=== PATIENT | female | born 1960 | race Caucasian/White ===

== ENCOUNTER 2017-06-24 19:48 | Inpatient (IN) | payer BC, OTHER ==
[~2017-06-24] VITALS: Ht 162.6 cm; Wt 82.5 kg
[2017-06-24 20:12] LABS: GLUCOSE,POINT OF CARE 170 MG/DL (70-110)
[2017-06-24] MEDS ORDERED: METO-327 PO (20:13)
[2017-06-24] MEDS ORDERED: LOSA100T29 PO (20:13)
[2017-06-24] MEDS ORDERED: CLOP75TA32 PO (20:13)
[2017-06-24] MEDS ORDERED: INSU3INS3 SQ (20:13)
[2017-06-24] MEDS ORDERED: AMLO10TA55 PO (20:13)
[2017-06-24] MEDS ORDERED: INSU100I3 SQ (20:13)
[2017-06-24] MEDS ORDERED: ATOR20TA65 PO (20:13)
[2017-06-24] MEDS ORDERED: METF10002 PO (20:13)
[2017-06-24 20:40] LABS: CALCIUM, TOTAL 9.3 mg/dL (8.8-10.5); CREATININE 1.33 mg/dL (0.60-1.30); POTASSIUM 4.3 mmol/L (3.5-5.1)
[2017-06-24 20:47] LABS: ALBUMIN 3.5 g/dL (3.4-5.0); BILIRUBIN,TOTAL 0.3 mg/dL (0.1-1.0); TOTAL PROTEIN, SERUM 7.9 g/dL (6.4-8.2)
[2017-06-24 21:05] LABS: BASOPHILS % (AUTO) 0.5 % (0.0-2.0); EOSINOPHILS % (AUTO) 8.3 % (1.0-6.0); HEMATOCRIT 33.6 % (36-46); HEMOGLOBIN 11.2 g/dL (12.0-16.0); LYMPHOCYTES # (AUTO) 3.4 K/uL (1.0-4.8); LYMPHOCYTES % (AUTO) 38.5 % (22.0-44.0); MEAN CORPUSCULAR HEMOGLOBIN 27.1 pg (26.0-34.0); MEAN CORPUSCULAR HGB CONC 33.3 G/dL (31.0-37.0); MEAN CORPUSCULAR VOLUME 81 fL (80-100); MONOCYTES # (AUTO) 0.4 K/uL (0.1-1.0); MONOCYTES % (AUTO) 4.8 % (2.0-9.0); NEUTROPHILS # (AUTO) 4.2 K/uL (1.8-7.7); NEUTROPHILS % (AUTO) 47.9 % (40.0-70.0); PLATELET COUNT (AUTO) 315 K/uL (150-450); RED BLOOD CELL COUNT(AUTO) 4.12 MIL/uL (4.00-5.20); RED CELL DISTRIBUTION WIDTH 15.9 % (11.5-14.5); WHITE BLOOD COUNT (AUTO) 8.8 K/uL (4.5-11.0)
[2017-06-24 21:28] LABS: PROTHROMBIN TIME 10.2 SEC (9.4-11.6)
[2017-06-24] MEDS ORDERED: SODIUM CHLORIDE 0.9% 2,000 ML IV ONE (23:30)
[2017-06-24] MEDS ORDERED: HEPARIN SODIUM,PORCINE 5,000 UNITS/ML VIAL IVP ONE (23:30)
[2017-06-24] MEDS ORDERED: HEPARIN SODIUM 25000 UNITS/D5W 250 ML IV PRN (23:30)
[2017-06-25] MEDS ORDERED: 0.9% SODIUM CHLORIDE 10 ML SYRINGE IVP PRN (02:30)
[2017-06-25] MEDS ORDERED: ONDANSETRON HCL 4 MG/2 ML VIAL IVP PRN (02:30)
[2017-06-25] MEDS ORDERED: HEPARIN SODIUM,PORCINE 5,000 UNITS/ML VIAL IVP PRN ×2 (02:45)
[2017-06-25] MEDS ORDERED: POTASSIUM CHL 20 MEQ/0.45% NS 1,000 ML IV ONE (02:45)
[2017-06-25 05:13] LABS: BASOPHILS # (AUTO) 0.06 K/uL (0.00-0.20); BASOPHILS % (AUTO) 0.7 % (0.0-2.0); EOSINOPHILS # (AUTO) 0.67 K/uL (0.00-0.70); EOSINOPHILS % (AUTO) 8.53 % (1.0-6.0); HEMATOCRIT 30.8 % (36-46); HEMOGLOBIN 10.1 g/dL (12.0-16.0); LYMPHOCYTES # (AUTO) 3.2 K/uL (1.0-4.8); LYMPHOCYTES % (AUTO) 40.5 % (22.0-44.0); MEAN CORPUSCULAR HEMOGLOBIN 27.3 pg (26.0-34.0); MEAN CORPUSCULAR HGB CONC 32.7 G/dL (31.0-37.0); MEAN CORPUSCULAR VOLUME 83 fL (80-100); MONOCYTES # (AUTO) 0.4 K/uL (0.1-1.0); MONOCYTES % (AUTO) 5.1 % (2.0-9.0); NEUTROPHILS # (AUTO) 3.5 K/uL (1.8-7.7); NEUTROPHILS % (AUTO) 45.2 % (40.0-70.0); PLATELET COUNT (AUTO) 254 K/uL (150-450); RED CELL DISTRIBUTION WIDTH 15.6 % (11.5-14.5); WHITE BLOOD COUNT (AUTO) 7.8 K/uL (4.5-11.0)
[2017-06-25 05:32] LABS: ALBUMIN 2.9 g/dL (3.4-5.0); BILIRUBIN,TOTAL 0.3 mg/dL (0.1-1.0); CALCIUM, TOTAL 8.5 mg/dL (8.8-10.5); POTASSIUM 4.3 mmol/L (3.5-5.1); TOTAL PROTEIN, SERUM 6.8 g/dL (6.4-8.2)
[2017-06-25] MEDS ORDERED: ACETAMINOPHEN 325 MG TABLET PO PRN (07:15)
[2017-06-25] MEDS ORDERED: MORPHINE SULFATE 2 MG/ML SYRINGE IVP PRN (07:15)
[2017-06-25] MEDS ORDERED: MAGNESIUM HYDROXIDE SUSPENSION 30 ML UDCUP PO PRN (07:15)
[2017-06-25] MEDS ORDERED: DEXTROSE 50%-WATER 25 GM/50 ML SYRINGE IVP PRN (07:15)
[2017-06-25] MEDS: DOCUSATE SODIUM 100 MG CAPSULE PO SCH ×2 (08:14→20:43)
[2017-06-25] MEDS: PANTOPRAZOLE SODIUM 40 MG DR TABLET PO SCH (08:14)
[2017-06-25] MEDS ORDERED: AmLODIPine BESYLATE 5 MG TABLET PO SCH (09:00)
[2017-06-25 12:18] LABS: GLUCOSE,POINT OF CARE 210 MG/DL (70-110)
[2017-06-25 14:35] VITALS: BP 142/71
[2017-06-25] MEDS: HEPARIN SODIUM 25000 UNITS/D5W 250 ML IV PRN ×3 (15:38→22:34)
[2017-06-25] MEDS ORDERED: PNEUMOCOCCAL VACCINE POLYVALENT 0.5 ML VIAL [PPSV23] IM ONE (18:00)
[2017-06-25] MEDS: INSULIN ASPART 100 UNITS/ML SQ PRN ×2 (18:20→20:44)
[2017-06-25 19:43] VITALS: BP 145/74
[2017-06-25] MEDS ORDERED: SERT50TA12 PO (19:59)
[2017-06-25] MEDS: ATORVASTATIN CALCIUM 20 MG TABLET PO SCH (20:43)
[2017-06-25 23:52] VITALS: BP 147/73
[2017-06-26] MEDS ORDERED: HEPARIN SODIUM,PORCINE 5,000 UNITS/ML VIAL IVP PRN ×2 (00:30)
[2017-06-26] MEDS: HEPARIN SODIUM 25000 UNITS/D5W 250 ML IV PRN ×2 (00:38→08:29)
[2017-06-26 05:06] VITALS: BP 146/92
[2017-06-26 05:15] LABS: GLUCOSE,POINT OF CARE 259 MG/DL (70-110)
[2017-06-26 05:15] LABS: GLUCOSE COMMENT 1 Received Meds; GLUCOSE,POINT OF CARE 331 MG/DL (70-110)
[2017-06-26 06:34] LABS: BASOPHILS % (AUTO) 0.9 % (0.0-2.0); EOSINOPHILS % (AUTO) 9.2 % (1.0-6.0); HEMATOCRIT 31.7 % (36-46); HEMOGLOBIN 10.8 g/dL (12.0-16.0); LYMPHOCYTES # (AUTO) 2.5 K/uL (1.0-4.8); LYMPHOCYTES % (AUTO) 34.3 % (22.0-44.0); MEAN CORPUSCULAR HEMOGLOBIN 27.8 pg (26.0-34.0); MEAN CORPUSCULAR HGB CONC 33.9 G/dL (31.0-37.0); MEAN CORPUSCULAR VOLUME 82 fL (80-100); MONOCYTES # (AUTO) 0.4 K/uL (0.1-1.0); MONOCYTES % (AUTO) 5.5 % (2.0-9.0); NEUTROPHILS # (AUTO) 3.7 K/uL (1.8-7.7); NEUTROPHILS % (AUTO) 50.1 % (40.0-70.0); PLATELET COUNT (AUTO) 251 K/uL (150-450); RED BLOOD CELL COUNT(AUTO) 3.87 MIL/uL (4.00-5.20); RED CELL DISTRIBUTION WIDTH 15.8 % (11.5-14.5); WHITE BLOOD COUNT (AUTO) 7.4 K/uL (4.5-11.0)
[2017-06-26 07:01] VITALS: BP 161/85
[2017-06-26] MEDS: INSULIN ASPART 100 UNITS/ML SQ PRN ×4 (07:22→21:13)
[2017-06-26] MEDS: AmLODIPine BESYLATE 10 MG TABLET PO SCH (08:19)
[2017-06-26] MEDS: PANTOPRAZOLE SODIUM 40 MG DR TABLET PO SCH (08:19)
[2017-06-26] MEDS: DOCUSATE SODIUM 100 MG CAPSULE PO SCH ×2 (08:19→20:34)
[2017-06-26 09:37] LABS: GLUCOSE COMMENT 1 Received Meds; GLUCOSE,POINT OF CARE 307 MG/DL (70-110)
[2017-06-26 11:48] VITALS: BP 154/79
[2017-06-26] MEDS ORDERED: IOVERSOL 350 MG/ML 100 ML VIAL ONE (15:10)
[2017-06-26] MEDS ORDERED: SODIUM CHLORIDE 0.9% 100 ML ONE (15:10)
[2017-06-26 15:19] VITALS: BP 179/88
[2017-06-26] MEDS ORDERED: MIDAZOLAM HCL 2 MG/2 ML VIAL ONE (15:27)
[2017-06-26] MEDS ORDERED: FentaNYL CITRATE-PF 100 MCG/2 ML VIAL ONE (15:28)
[2017-06-26 15:57] LABS: GLUCOSE,POINT OF CARE 381 MG/DL (70-110)
[2017-06-26] MEDS ORDERED: HEPARIN SODIUM 1000 UNITS/NS 500 ML ONE (16:01)
[2017-06-26] MEDS ORDERED: LIDOCAINE HCL/PF 1% 30 ML VIAL ONE (16:01)
[2017-06-26] MEDS ORDERED: IODIXANOL 320 MG/ML 100 ML VIAL ONE (16:09)
[2017-06-26] MEDS ORDERED: CIPROFLOXACIN 400 MG/D5% WATER 200 ML IV ONE (16:15)
[2017-06-26] MEDS: CIPROFLOXACIN 400 MG/D5% WATER 200 ML IV SCH (16:20)
[2017-06-26] MEDS ORDERED: MIDAZOLAM HCL 2 MG/2 ML VIAL IVP ONE (16:24)
[2017-06-26] MEDS ORDERED: FentaNYL CITRATE-PF 100 MCG/2 ML VIAL IVP ONE (16:24)
[2017-06-26] MEDS ORDERED: HEPARIN SODIUM,PORCINE 1,000 UNITS/ML 10 ML VIAL ONE (16:45)
[2017-06-26 18:26] VITALS: BP 164/80
[2017-06-26 19:25] VITALS: BP 131/72
[2017-06-26] MEDS: CLOPIDOGREL BISULFATE 75 MG TABLET PO SCH (20:34)
[2017-06-26] MEDS: ATORVASTATIN CALCIUM 20 MG TABLET PO SCH (20:34)
[2017-06-26] MEDS ORDERED: INSULIN DETEMIR 100 UNITS/ML SQ SCH (21:00)
[2017-06-26 23:18] LABS: GLUCOSE,POINT OF CARE 380 MG/DL (70-110)
[2017-06-26 23:18] LABS: GLUCOSE COMMENT 1 Received Meds; GLUCOSE,POINT OF CARE 339 MG/DL (70-110)
[2017-06-27 00:31] VITALS: BP 126/71
[2017-06-27] MEDS ORDERED: SODIUM CHLORIDE 0.9% 250 ML IV ONE (04:01)
[2017-06-27] MEDS: CIPROFLOXACIN 400 MG/D5% WATER 200 ML IV SCH (04:06)
[2017-06-27 05:21] VITALS: BP 136/71
[2017-06-27] MEDS: INSULIN ASPART 100 UNITS/ML SQ PRN (05:48)
[2017-06-27 06:13] LABS: GLUCOSE COMMENT 1 Received Meds; GLUCOSE,POINT OF CARE 288 MG/DL (70-110)
[2017-06-27 08:01] VITALS: BP 159/79
[2017-06-27] MEDS: AmLODIPine BESYLATE 10 MG TABLET PO SCH (08:17)
[2017-06-27] MEDS: PANTOPRAZOLE SODIUM 40 MG DR TABLET PO SCH (08:17)
[2017-06-27] MEDS: DOCUSATE SODIUM 100 MG CAPSULE PO SCH (08:17)
[2017-06-27] MEDS: CLOPIDOGREL BISULFATE 75 MG TABLET PO SCH (08:17)
== END 2017-06-27 11:10 | disposition home or self-care (01) | DRG 253 ==
LOC: EMS 19:53 → 5S 06-25 11:51
PROVIDERS: ADMIT Internal Medicine; ATTEND Internal Medicine
PROC: 3E0234Z Introduction of Serum, Toxoid and Vaccine into Muscle, Percutaneous Approach (ICD-10-PCS; 2017-06-25)
PROC: 047L3ZZ Dilation of Left Femoral Artery, Percutaneous Approach (ICD-10-PCS; principal; 2017-06-26)
PROC: 047N3ZZ Dilation of Left Popliteal Artery, Percutaneous Approach (ICD-10-PCS; 2017-06-26)
DX: I73.9 Peripheral vascular disease, unspecified (principal); N39.0 Urinary tract infection, site not specified; I10 Essential (primary) hypertension; M71.21 Synovial cyst of popliteal space [Baker], right knee; F32.9 Major depressive disorder, single episode, unspecified; E78.5 Hyperlipidemia, unspecified; E11.51 Type 2 diabetes mellitus with diabetic peripheral angiopathy without gangrene; E66.01 Morbid (severe) obesity due to excess calories; E11.65 Type 2 diabetes mellitus with hyperglycemia; Z79.02 Long term (current) use of antithrombotics/antiplatelets; Z79.899 Other long term (current) drug therapy; Z91.14 Patient's other noncompliance with medication regimen; Z86.718 Personal history of other venous thrombosis and embolism; Z23 Encounter for immunization
CPT/HCPCS: 36245; 74175; 75774; 76937; 82962; 85379; 87086; 90471; 92921; 93005; 93925; 93970; 96365; 96366; 99285; J0744; J1644; J2250; J3010; J3480; J3490; J7030; J7050; Q9967